=== PATIENT | female | born 1950 | race Caucasian/White ===

== ENCOUNTER 2019-06-22 07:23 | Emergency (ER) | payer OTHER ==
[2019-06-22] MEDS ORDERED: NA CHLORIDE 0.9% 1,000 ML ONE (08:07)
[2019-06-22 08:25] LABS: Protime INR 0.99
[2019-06-22 08:29] LABS: Absolute Lymphocytes (CBC) 1.9 K/uL (0.7-4.9); Basophils % 0.6 % (0-1.3); Hematocrit 44.6 % (36.0-45.0); RBC Red Blood Cell Count 5.09 M/uL (3.86-4.86)
[2019-06-22 08:39] LABS: ALT/SGPT 31 U/L (12-78); AST/SGOT 16 U/L (15-37); Albumin 3.5 g/dL (3.4-5.0); Alkaline Phosphatase 64 U/L (45-117); BUN Blood Urea Nitrogen 17 mg/dL (7-18); Bicarbonate 24 mmol/L (21-32); Bilirubin Direct 0.2 mg/dL (0-0.2); Bilirubin Total 0.5 mg/dL (0.2-1.0); Glucose Level 122 mg/dL (74-106); NT PRO-BNP 271 pg/mL (<125); Potassium 4.2 mmol/L (3.5-5.1); Protein, Total 6.4 g/dL (6.4-8.2); Sodium Level 139 mmol/L (136-145); Thyroid Stimulating Hormone 0.017 uIU/mL (0.360-3.740); Troponin (Emerg Dept Use Only) < 0.02 ng/mL (0.0-0.045)
--- NOTE | 2019-06-22 09:42 | RAD REPORT ---
[facility] 8[facility]24 am CLINICAL HISTORY: Chest pain COMPARISON: 2018 FINDINGS: Small, bilateral lung nodules. Please refer to the CT report on same date for recommendati on Heart is borderline enlarged.
--- NOTE | 2019-06-22 09:42 | RAD REPORT ---
EXAM DESCRIPTION: CT - Angio Aorta For Dissection - 06/22/2019 9:12 am CLINICAL HISTORY: . Chest and abdominal pain COMPARISON: None TECHNIQUE: Computed tomography angiography of the chest, abdomen pelvis were obtained. 100 cc Isovue 370 was administered intravenously. Coronal and sagittal reconstruction were performed. MIP 3D reconstruction was performed All CT scans are performed using dose optimization technique as appropriate and may include automated exposure control or mA/KV adjustment according to patient size. FINDINGS: An aortic dissection is not seen. An aortic aneurysm is not displayed. The celiac, SMA and ALICE are patent . A lung consolidation is not present. A pericardial effusion is not seen. A pleural effusion is not n oted. 9 x 5 millimeter lingular nodule image 25. 8 x 6 millimeter nodule left lower lobe image 30. Co uple of additional tiny lung nodules bilaterally. A hernia involves the lateral aspect of the left lo wer lobe. Mild fatty liver Small hiatal hernia. Cholelithiasis with borderline gallbladder distention Spleen, and pancreas unremarkable. A 4.2 centimeter fatty mass right adrenal gland probably a myeloli james Mild prominence of the left adrenal gland likely benign Parapelvic renal cysts. No evidence of diverticulitis. Hysterectomy. Multiple, bilateral axillary lymph nodes measuring up to 13 millimeters short axis. IMPRESSION: Negative for an aortic dissection. Mild bilateral axillary lymphadenopathy may be reactive in nature. Neoplasm such as lymphoma can also have this appearance. Multiple lung nodules. 4.2 centimeter fatty mass right adrenal gland probably a myelolipoma . It is recommended that the patient have a CT in 3 months to reassess the axillary lymphadenopathy, michael ng nodules and right adrenal mass Cholelithiasis with borderline gallbladder distention
[2019-06-22 09:45] LABS: Urine Blood NEGATIVE (NEG); Urine Glucose NEGATIVE (NEG); Urine Protein NEGATIVE (NEG); Urine Specific Gravity 1.025 (1.005-1.030); Urine pH 5.5 (5.0-7.0)
[2019-06-22] MEDS ORDERED: ASPIRIN 81 MG CHEWABLE TABLET ONE (10:24)
[2019-06-22] MEDS ORDERED: CEFTRIAXONE/SWI 1gm 1 GM/10 ML SYR ONE (10:25)
--- NOTE | 2019-06-22 11:38 | EDPHYS ---
Physician Documentation [facility] Name: Isaura Neumann Age: 69 yrs Sex: Female : 1950 Arrival Date: 06/22/2019 Time: 07:27 Bed 5 Private MD: KIRILL Physician Juan Francisco Cabrera HPI: 06/21 07:57 This 69 yrs old Female presents to ER via Ambulatory with complaints of katherine Dizziness, Back Pain, Side Pain. 07:57 The patient presents with dizziness, generalized weakness. Onset: The symptoms/episode katherine began/occurred this morning, today. Context: occurred at home. Modifying factors: The symptoms are alleviated by nothing, the symptoms are aggravated by nothing. Associated signs and symptoms: The patient has no apparent associated signs or symptoms. Associated signs and symptoms: The patient has no apparent associated signs or symptoms, Pertinent positives: palpitations. Severity of symptoms: At their worst the symptoms were mild. Patient's baseline: Neuro: alert and fully oriented. The patient has not experienced similar symptoms in the past. Historical: - Allergies: 07:39 PENICILLINS; iw 07:48 Tetanus Vaccines and Toxoid; tw2 07:48 Ibuprofen; tw2 - PMHx: 07:39 Asthma; Diabetes - NIDDM; Hypertension; iw - PSHx: 07:39 Hysterectomy; ; ROBERTO CARLOS shoulder surgery; Thyroidectomy; iw - Immunization history:: Adult Immunizations not up to date. - Social history:: Smoking status: Patient denies any tobacco usage or history of. - Family history:: not pertinent. ROS: 07:57 Constitutional: Negative for fever, chills, and weight loss, Eyes: Negative for injury, katherine pain, redness, and discharge, ENT: Negative for injury, pain, and discharge, Neck: Negative for injury, pain, and swelling, Cardiovascular: Negative for chest pain, palpitations, and edema, Respiratory: Negative for shortness of breath, cough, wheezing, and pleuritic chest pain, Abdomen/GI: Negative for abdominal pain, nausea, vomiting, diarrhea, and constipation, : Negative for injury, bleeding, discharge, and swelling, MS/Extremity: Negative for injury and deformity, Skin: Negative for injury, rash, and discoloration, Psych: Negative for depression, anxiety, suicide ideation, homicidal ideation, and hallucinations, Allergy/Immunology: Negative for hives, rash, and allergies, Endocrine: Negative for neck swelling, polydipsia, polyuria, polyphagia, and marked weight changes, Hematologic/Lymphatic: Negative for swollen nodes, abnormal bleeding, and unusual bruising. 07:57 Back: Positive for pain with movement, of the right scapular area, right subscapular area and right mid back. Exam: 07:57 Constitutional: This is a well developed, well nourished patient who is awake, alert, katherine and in no acute distress. Head/Face: Normocephalic, atraumatic. Eyes: Pupils equal round and reactive to light, extra-ocular motions intact. Lids and lashes normal. Conjunctiva and sclera are non-icteric and not injected. Cornea within normal limits. Periorbital areas with no swelling, redness, or edema. ENT: Nares patent. No nasal discharge, no septal abnormalities noted. Tympanic membranes are normal and external auditory canals are clear. Oropharynx with no redness, swelling, or masses, exudates, or evidence of obstruction, uvula midline. Mucous membranes moist. Neck: Trachea midline, no thyromegaly or masses palpated, and no cervical lymphadenopathy. Supple, full range of motion without nuchal rigidity, or vertebral point tenderness. No Meningismus. Chest/axilla: Normal chest wall appearance and motion. Nontender with no deformity. No lesions are appreciated. Cardiovascular: Regular rate and rhythm with a normal S1 and S2. No gallops, murmurs, or rubs. Normal PMI, no JVD. No pulse deficits. Respiratory: Lungs have equal breath sounds bilaterally, clear to auscultation and percussion. No rales, rhonchi or wheezes noted. No increased work of breathing, no retractions or nasal flaring. Abdomen/GI: Soft, non-tender, with normal bowel sounds. No distension or tympany. No guarding or rebound. No evidence of tenderness throughout. Back: No spinal tenderness. No costovertebral tenderness. Full range of motion. Skin: Warm, dry with normal turgor. Normal color with no rashes, no lesions, and no evidence of cellulitis. MS/ Extremity: Pulses equal, no cyanosis. Neurovascular intact. Full, normal range of motion. Neuro: Awake and alert, GCS 15, oriented to person, place, time, and situation. Cranial nerves II-XII grossly intact. Motor strength 5/5 in all extremities. Sensory grossly intact. Cerebellar exam normal. Normal gait. Psych: Awake, alert, with orientation to person, place and time. Behavior, mood, and affect are within normal limits. 07:57 Skin: no rash present. Vital Signs: 07:36 BP 144 / 66; Pulse 72; Resp 16; Temp 97.7; Pulse Ox 100% on R/A; Weight 88 kg; Height 5 iw ft. 4 in. (162.56 cm); Pain 9/10; 08:30 BP 138 / 63; Pulse 66; Resp 17; Pulse Ox 98% on R/A; tw2 09:37 BP 140 / 71; Pulse 76; Resp 19; Pulse Ox 100% on R/A; tw2 10:45 BP 125 / 86; Pulse 80; Resp 15; Pulse Ox 100% on R/A; tw2 11:25 BP 137 / 82; Pulse 89; Resp 17; Pulse Ox 99% on R/A; tw2 12:32 BP 135 / 88; Pulse 77; Resp 17; Pulse Ox 100% on R/A; tw2 07:36 Body Mass Index 33.30 (88.00 kg, 162.56 cm) iw MDM: 07:41 Patient medically screened. [facility] 07:59 Data reviewed: vital signs, nurses notes, lab test result(s), EKG, radiologic studies, [facility] scan, plain films. 03 07:56 Order name: Basic Metabolic Panel [facility] 06/21 07:56 Order name: CBC with Diff [facility] 06/21 07:56 Order name: LFT's [facility] 06/21 07:56 Order name: Magnesium [facility] 06/21 07:56 Order name: NT PRO-BNP [facility] 06/21 07:56 Order name: PT-INR [facility] 06/21 07:56 Order name: Troponin (emerg Dept Use Only) [facility] 06/21 07:56 Order name: TSH [facility] 06/21 07:57 Order name: Urine Culture [facility] 06/21 08:29 Order name: Protime (+INR); Complete Time: 09:57 EDMS 06/21 08:38 Order name: CBC with Automated Diff; Complete Time: 09:57 EDMS 06/21 08:40 Order name: Basic Metabolic Panel; Complete Time: 09:57 EDMS 06/21 08:40 Order name: Liver (Hepatic) Function; Complete Time: 09:57 EDMS 06/21 08:40 Order name: Troponin (Emerg Dept Use Only); Complete Time: 09:57 EDMS 06/21 07:56 Order name: XRAY Chest (1 view) [facility] 06/21 07:56 Order name: CT Aorta for Dissection [facility] 06/21 08:40 Order name: NT PRO-BNP; Complete Time: 09:57 EDMS 06/21 08:40 Order name: Magnesium; Complete Time: 09:57 EDMS 06/21 08:40 Order name: Thyroid Stimulating Hormone; Complete Time: 09:57 EDMS 06/21 08:44 Order name: Urine Dipstick--Ancillary (enter results) 06/21 09:46 Order name: Urine Dipstick-Ancillary; Complete Time: 09:57 EDMS 06/21 09:51 Order name: CT; Complete Time: 09:57 EDMS 06/21 09:51 Order name: RAD; Complete Time: 09:57 EDMS 06/21 09:59 Order name: Troponin (emerg Dept Use Only): 1130am [facility] 06/21 10:27 Order name: US Abdomen Limited [facility] 06/21 10:39 Order name: Troponin (Emerg Dept Use Only); Complete Time: 10:47 EDMS 06/21 11:31 Order name: Lipase [facility] 06/21 11:46 Order name: Lipase ED[facility] 06/21 11:49 Order name: US EDKY 06/21 07:56 Order name: EKG; Complete Time: 07:59 [facility] 06/21 07:56 Order name: Cardiac monitoring; Complete Time: 08:09 [facility] 06/21 07:56 Order name: EKG - Nurse/Tech; Complete Time: 08:09 [facility] 06/21 07:56 Order name: IV Saline Lock; Complete Time: 08:10 [facility] 06/21 07:56 Order name: Labs collected and sent; Complete Time: 08:10 [facility] 06/21 07:56 Order name: O2 Per Protocol; Complete Time: 08:10 [facility] 06/21 07:56 Order name: O2 Sat Monitoring; Complete Time: 08:10 [facility] 06/21 07:57 Order name: Urine Dipstick-Ancillary (obtain specimen); Complete Time: 08:30 [facility] Administered Medications: 08:34 Drug: NS 0.9% 1000 ml Route: IV; Rate: 1 bolus; Site: left antecubital; jl7 10:00 Follow up: Response: No adverse reaction; IV Status: Completed infusion; IV Intake: jl7 1000ml 10:25 Drug: Rocephin 1 grams Route: IV; Rate: per protocol; Site: left antecubital; jl7 10:28 Follow up: Response: No adverse reaction; IV Status: Completed infusion jl7 10:30 Drug: Aspirin 162 mg Route: PO; jl7 10:31 Follow up: Response: No adverse reaction jl7 11:50 Drug: levofloxacin 500 mg Volume: 100 ml; Route: IVPB; Infused Over: 60 mins; Site: tw2 left antecubital; 12:50 Follow up: Response: No adverse reaction; IV Status: Completed infusion tw2 12:05 Drug: Pepcid 20 mg Route: IVP; Site: left antecubital; tw2 12:31 Follow up: Response: No adverse reaction tw2 Disposition: 06/22/19 12:30 Discharged to Home. Impression: Urinary tract infection, site not specified, Type 2 diabetes mellitus, Dizziness and giddiness, Cholelithiasis. - Condition is Stable. - Discharge Instructions: Type 2 Diabetes Mellitus, Diagnosis, Adult, Dizziness, Urinary Tract Infection, Adult, Cholelithiasis, Cholelithiasis, Vnmr-[id number], Urinary Tract Infection, Adult, Onnp-rc-[id number], Type 2 Diabetes Mellitus, Diagnosis, Adult, Moer-ze-Nbol, Lymphadenopathy, Dizziness, Yfzi-cd-Gkvi. - Prescriptions for Cipro 250 mg Oral Tablet - take 1 tablet by ORAL route every 12 hours for 7 days; 14 tablet. Pepcid 20 mg Oral Tablet - take 1 tablet by ORAL route every 12 hours for 10 days; 20 tablet. Zofran 4 mg Oral Tablet - take 1 tablet by ORAL route every 12 hours As needed; 20 tablet. - Medication Reconciliation Form, Thank You Letter, Antibiotic Education, Prescription Opioid Use form. - Follow up: Private Physician; When: 2 - 3 days; Reason: Recheck today's complaints, Continuance of care, Re-evaluation by your physician. Follow up: Kamar Severino; When: 2 - 3 days; Reason: Recheck today's complaints, Re-evaluation by your physician. Follow up: Shabana Guallpa; When: 5 - 6 days; Reason: Recheck today's complaints, Continuance of care, Re-evaluation by your physician. Follow up: Dr. Saeid Geronimo; When: 2 - 3 days; Reason: Recheck today's complaints, Re-evaluation by your physician. - Problem is new. - Symptoms have improved. Signatures: Dispatcher [employer] EDJuan Francisco Campoverde MD MD cha Williams, Irene, RN RN iw Rebecca Bennett RN RN tw2 Aron Lua RN RN jl7 Corrections: (The following items were deleted from the chart) 12:23 11:37 Hospitalization Ordered by Daniel Zheng DO for Inpatient Admission. Preliminary [facility] diagnosis is Abdominal tenderness; Dizziness and giddiness; Type 2 diabetes mellitus; Cholelithiasis; Cholecystitis. Bed requested for Telemetry/MedSurg (Inpatient). Status is Inpatient Admission. Condition is Fair. Problem is new. Symptoms have improved. [facility] 13:02 12:30 06/22/2019 12:30 Discharged to Home. Impression: Urinary tract infection, site tw2 not specified; Type 2 diabetes mellitus; Dizziness and giddiness; Cholelithiasis. Condition is Stable. Discharge Instructions: Type 2 Diabetes Mellitus, Diagnosis, Adult, Dizziness, Urinary Tract Infection, Adult, Cholelithiasis, Cholelithiasis, Uumc-tj-Grnf, Urinary Tract Infection, Adult, Kbdy-ze-Yzgp, Type 2 Diabetes Mellitus, Diagnosis, Adult, Fdyd-br-Ekfn, Lymphadenopathy, Dizziness, Shsf-xz-Tljy. Prescriptions for Cipro 250 mg Oral Tablet - take 1 tablet by ORAL route every 12 hours; 14 tablet, Cipro 250 mg Oral Tablet - take 1 tablet by ORAL route every 12 hours for 7 days; 14 tablet, Pepcid 20 mg Oral Tablet - take 1 tablet by ORAL route every 12 hours for 10 days; 20 tablet, Zofran 4 mg Oral Tablet - take 1 tablet by ORAL route every 12 hours As needed; 20 tablet. and Forms are Medication Reconciliation Form, Thank You Letter, Antibiotic Education, Prescription Opioid Use. Follow up: Private Physician; When: 2 - 3 days; Reason: Recheck today's complaints, Continuance of care, Re-evaluation by your physician. Follow up: Kamar Severino; When: 2 - 3 days; Reason: Recheck today's complaints, Re-evaluation by your physician. Follow up: Shabana Guallpa; When: 5 - 6 days; Reason: Recheck today's complaints, Continuance of care, Re-evaluation by your physician. Follow up: Dr. Saeid Geronimo; When: 2 - 3 days; Reason: Recheck today's complaints, Re-evaluation by your physician. Problem is new. Symptoms have improved. katherine
--- NOTE | 2019-06-22 11:38 | ER ---
Nurse's Notes [facility] Name: Isaura Neumann Age: 69 yrs Sex: Female : 1950 Arrival Date: 06/22/2019 Time: 07:27 Bed 5 Private MD: Diagnosis: Urinary tract infection, site not specified;Type 2 diabetes mellitus;Dizziness and giddiness;Cholelithiasis Presentation: 06/21 07:36 Chief complaint: Patient states: right upper back pain since this morning , denies iw cough, denies injury, feels dizzy , feels similar to when she had pneumonia. Coronavirus screen: The patient has NOT traveled to a country currently being monitored by the [facility] within the last 14 days. Proceed with normal triage procedures. The patient has NOT had contact with any known and/or suspected case of coronavirus. Proceed with normal triage procedures. Ebola Screen: Patient negative for fever greater than or equal to 101.5 degrees Fahrenheit, and additional compatible Ebola Virus Disease symptoms Patient denies exposure to infectious person. Patient denies travel to an Ebola-affected area in the 21 days before illness onset. No symptoms or risks identified at this time. Initial Sepsis Screen: Does the patient meet any 2 criteria? No. Patient's initial sepsis screen is negative. Does the patient have a suspected source of infection? No. Patient's initial sepsis screen is negative. Risk Assessment: Do you want to hurt yourself or someone else? Patient reports no desire to harm self or others. 07:36 Method Of Arrival: Ambulatory iw 07:36 Acuity: CHIVO 3 iw 07:47 Onset of symptoms was June 22, 2019. tw2 Historical: - Allergies: 07:39 PENICILLINS; iw 07:48 Tetanus Vaccines and Toxoid; tw2 07:48 Ibuprofen; tw2 - PMHx: 07:39 Asthma; Diabetes - NIDDM; Hypertension; iw - PSHx: 07:39 Hysterectomy; ; ROBERTO CARLOS shoulder surgery; Thyroidectomy; iw - Immunization history:: Adult Immunizations not up to date. - Social history:: Smoking status: Patient denies any tobacco usage or history of. - Family history:: not pertinent. Screenin:45 Abuse screen: Denies threats or abuse. Nutritional screening: No deficits noted. tw2 Tuberculosis screening: No symptoms or risk factors identified. Fall Risk None identified. Assessment: 07:42 Reassessment: pt typing on cell phone upon entry into room and while assessment tw2 performed, NAD. General: Appears in no apparent distress. obese, well groomed, Behavior is calm, cooperative, appropriate for age. Pain: Complains of pain in back. Neuro: Level of Consciousness is awake, alert, obeys commands, Oriented to person, place, time, situation. Cardiovascular: Heart tones S1 S2 Capillary refill < 3 seconds Patient's skin is warm and dry. Respiratory: Airway is patent Respiratory effort is even, unlabored, Respiratory pattern is regular, symmetrical, Breath sounds are clear bilaterally. GI: No signs and/or symptoms were reported involving the gastrointestinal system. Abdomen is round non-distended, obese, Bowel sounds present X 4 quads. : No signs and/or symptoms were reported regarding the genitourinary system. EENT: No signs and/or symptoms were reported regarding the EENT system. Derm: No signs and/or symptoms reported regarding the dermatologic system. Musculoskeletal: Range of motion: intact in all extremities. 07:45 Reassessment: provider at bedside at this time. tw2 08:30 Reassessment: Patient appears in no apparent distress at this time. No changes from tw2 previously documented assessment. Patient and/or family updated on plan of care and expected duration. Pain level reassessed. Patient is alert, oriented x 3, equal unlabored respirations, skin warm/dry/pink. 08:45 Reassessment: pt requested to go to restroom at this time, pt unsteady on feet when tw2 standing, pt offered and assisted to w/c at this time, pt able to get into w/c safely, pt returned to bed safely at this time, nad. 08:59 Reassessment: pt c/o "not being able to do this test because i am claustrophobic", i tw2 called pts son at pts request confirmed allergies, talked with pt, "pt states ok i will do the test but dont leave me", donned CT radiology protective gown and held pts had during examination, pt then tolerated well, pt states "it was nerve wracking but i did it thanks to you", CT staff and nurse encouraged pt throughout px. 09:37 Reassessment: Patient appears in no apparent distress at this time. Patient and/or tw2 family updated on plan of care and expected duration. Pain level reassessed. Patient is alert, oriented x 3, equal unlabored respirations, skin warm/dry/pink. 10:46 Reassessment: Patient appears in no apparent distress at this time. No changes from tw2 previously documented assessment. Patient and/or family updated on plan of care and expected duration. Pain level reassessed. Patient is alert, oriented x 3, equal unlabored respirations, skin warm/dry/pink. 11:26 Reassessment: Patient appears in no apparent distress at this time. No changes from tw2 previously documented assessment. Patient and/or family updated on plan of care and expected duration. Pain level reassessed. Patient is alert, oriented x 3, equal unlabored respirations, skin warm/dry/pink. 12:46 Reassessment: Patient appears in no apparent distress at this time. No changes from tw2 previously documented assessment. Patient and/or family updated on plan of care and expected duration. Pain level reassessed. Patient is alert, oriented x 3, equal unlabored respirations, skin warm/dry/pink. Vital Signs: 07:36 BP 144 / 66; Pulse 72; Resp 16; Temp 97.7; Pulse Ox 100% on R/A; Weight 88 kg; Height 5 iw ft. 4 in. (162.56 cm); Pain 9/10; 08:30 BP 138 / 63; Pulse 66; Resp 17; Pulse Ox 98% on R/A; tw2 09:37 BP 140 / 71; Pulse 76; Resp 19; Pulse Ox 100% on R/A; tw2 10:45 BP 125 / 86; Pulse 80; Resp 15; Pulse Ox 100% on R/A; tw2 11:25 BP 137 / 82; Pulse 89; Resp 17; Pulse Ox 99% on R/A; tw2 12:32 BP 135 / 88; Pulse 77; Resp 17; Pulse Ox 100% on R/A; tw2 07:36 Body Mass Index 33.30 (88.00 kg, 162.56 cm) iw ED Course: 07:27 Patient arrived in ED. ag5 07:38 Triage completed. iw 07:39 Arm band placed on. iw 07:40 Bed in low position. Call light in reach. Side rails up X2. quality assurance monitor final on. Pulse tw2 ox on. NIBP on. 07:41 Juan Francisco Cabrera MD is Attending Physician. katherine 07:43 Rebecca Bennett, RN is Primary Nurse. tw2 08:09 Initial lab(s) drawn, by me, sent to lab. EKG done, by build technician. reviewed by Juan Francisco Cabrera MD. Inserted saline lock: 22 gauge in left antecubital area, using aseptic technique. Blood collected. 08:30 Urine collected: clean catch specimen, cloudy, morenita colored. jb1 08:40 EKG done, by build technician. reviewed by Juan Francisco Cabrera MD. at1 11:36 Daniel Zheng DO is Hospitalizing Provider. katherine 12:30 Kamar Severino MD is Referral Physician. katherine 12:30 Shabana Rome MD is Referral Physician. katherine 12:30 Saeid Geronimo MD is Referral Physician. katherine 12:30 No provider procedures requiring assistance completed. IV discontinued, intact, tw2 bleeding controlled, No redness/swelling at site. Pressure dressing applied. 12:32 Awaiting: completion of IV abx PRIOR to discharge. tw2 Administered Medications: 08:34 Drug: NS 0.9% 1000 ml Route: IV; Rate: 1 bolus; Site: left antecubital; jl7 10:00 Follow up: Response: No adverse reaction; IV Status: Completed infusion; IV Intake: jl7 1000ml 10:25 Drug: Rocephin 1 grams Route: IV; Rate: per protocol; Site: left antecubital; jl7 10:28 Follow up: Response: No adverse reaction; IV Status: Completed infusion jl7 10:30 Drug: Aspirin 162 mg Route: PO; jl7 10:31 Follow up: Response: No adverse reaction jl7 11:50 Drug: levofloxacin 500 mg Volume: 100 ml; Route: IVPB; Infused Over: 60 mins; Site: tw2 left antecubital; 12:50 Follow up: Response: No adverse reaction; IV Status: Completed infusion tw2 12:05 Drug: Pepcid 20 mg Route: IVP; Site: left antecubital; tw2 12:31 Follow up: Response: No adverse reaction tw2 Intake: 10:00 IV: 1000ml; Total: 1000ml. jl7 Outcome: 11:37 Decision to Hospitalize by Provider. katherine 12:30 Discharge ordered by . katherine 12:30 Discharged to home ambulatory, with family. tw2 12:30 Condition: stable 12:30 Discharge instructions given to patient, family, Instructed on discharge instructions, follow up and referral plans. medication usage, Demonstrated understanding of instructions, follow-up care, medications, Prescriptions given X 3. 13:02 Patient left the ED. tw2 Addendum: 06/27/2019 09:23 Addendum: Culture Results: Positive urine culture. No further action required. Bacteria d m5 sensitive to prescribed antibiotic. Signatures: Aashish Sanches jb1 Doreen Lind, RN RN dm5 Juan Francisco Cabrera MD MD cha Williams, Irene, RN RN iw Skye dEuardo, [employer] media EKG Tat1 Rebecca Bennett RN RN tw2 Aron Lua RN RN jl7 Karine Farmer ag5
[2019-06-22] MEDS ORDERED: Levofloxacin500mg IV 500 MG/100 ML BAG IV ONE (11:47)
--- NOTE | 2019-06-22 11:48 | RAD REPORT ---
EXAM DESCRIPTION: US - Abdomen Exam Limited - 06/22/2019 11:18 am CLINICAL HISTORY: ABD PAIN COMPARISON: No comparisons FINDINGS: The gallbladder demonstrates sludge and shadowing gallstones. No pericholecystic fluid or gallbladder wall thickening. The common bile duct is normal measuring 5 mm. The liver demonstrates no findings of intrahepatic biliary dilatation. IMPRESSION: Cholelithiasis and gallbladder sludge.
[2019-06-22] MEDS ORDERED: FAMOTIDINE 20 MG/2 ML VIAL IV ONE (12:06)
[2019-06-22 13:28] VITALS: TEMP 97.7
[2019-06-22 13:37] VITALS: BP 135/88; O2SAT 100
--- NOTE | 2019-06-22 13:44 | EKG ---
Test Date: 2019-06-22 Test Time: 08:07:11 Air Support Operations Operator: ALIZA MEASUREMENT RESULTS: Intervals: Rate: 67 SD: 142 QRSD: 84 QT: 418 QTc: 441 [place]: P: 33 SD: 142 QRS: 6 T: 37 INTERPRETIVE STATEMENTS: Normal sinus rhythm Normal ECG Compared to ECG 06/05/2017 08:16:28 Left ventricular hypertrophy no longer present T-wave abnormality no longer present Electronically Signed On 06-22-19 13:43:37 SYSTEMS SUPPORT OFFICER by Doron Vela
--- NOTE | 2019-06-22 15:21 | P.CNS ---
Date of Consult: 06/22/19 Reason for Consult: ER Evaluation Requesting Physician: Juan Francisco Cabrera Primary Care Provider: [facility] Chief Complaint: Right back pain History of Present Illness: 69-year-old female with history of COPD, diabetes, hypertension. Patient presented with right upper back pain. Was mainly near the right shoulder region. This started this a.m.. She denied any fever, chills, nausea , vomiting. She denied any abdominal pain. She did not report any dysuria. No recent travel wore sick contacts noted. Patient came to the ER thinking that she may have pneumonia. In the ER patient was evaluated. CBC, BMP unremarkable. Urinalysis unremarkable. Chest x-ray showed some lung nodules. A CT scan showed no evidence of pulmonary embolism. Bilateral axillary adenopathy noted. 4.2 cm right adrenal gland noted likely myelolipoma. Cholelithiasis without cholecystitis noted. Abdominal ultrasound also showed cholelithiasis without cholecystitis. I was called to evaluate patient for possible admission. Allergies Penicillins Allergy (Mild, Verified 07/06/12 05:25) Hives/Rash ibuprofen Allergy (Verified 07/07/12 09:14) Rash Tetanus Vaccines and Toxoid [Tetanus Vaccines & Toxoid] Adverse Reaction ( Verified 07/07/12 09:14) Shortness of breath Home medications list reviewed: Yes Home Medications: Albuterol Sulfate [Proair Hfa] 2 puff IH Q6HP PRN #1 hfa.aer.ad 07/07/12 Calcium Citrate 750 mg PO BID #0 tablet 07/07/12 Levothyroxine Sodium [Synthroid] 0.15 mg PO M,W,F #30 tablet 07/07/12 cloNIDine HCL [Catapres*] 0.2 mg PO BID #60 tab 07/07/12 methylPREDNISolone [Medrol*] 4 mg PO UD #1 tab 07/07/12 - Past Medical/Surgical History -: Hypothyroidism -: Hypertension -: Diabetes mellitus type 2 -: COPD -: Hysterectomy -: -: Bilateral shoulder surgery -: Thyroidectomy Psychosocial/ Personal History: Patient is - Family History Sister Medical History: Other (see notes) (Lymphoma) - Social History Smoking Status: Never smoker Alcohol use: No CD- Drugs: No Caffeine use: Yes Place of Residence: Home Review of Systems General: As per HPI Eyes: Unremarkable ENT: Unremarkable Respiratory: Unremarkable Cardiovascular: Unremarkable Gastrointestinal: Unremarkable Genitourinary: Unremarkable Musculoskeletal: Back Pain, As per HPI Integumentary: Unremarkable Neurological: Unremarkable Lymphatics: Unremarkable Physical Examination Temp Pulse Resp BP Pulse Ox 97.7 F 77 17 135/88 06/22/19 07:36 06/22/19 12:32 06/22/19 12:32 06/22/19 12:32 General: Alert, In no apparent distress, Oriented x3, Cooperative HEENT: Atraumatic, Normocephalic Neck: Supple Respiratory: Clear to auscultation bilaterally, Normal air movement Cardiovascular: Normal pulses, Regular rate/rhythm Gastrointestinal: Normal bowel sounds, Soft and benign, Non-distended, No tenderness, No masses, No rebound, No guarding Musculoskeletal: No erythema, No tenderness, No warmth Integumentary: No tenderness/swelling, No erythema, No warmth, No cyanosis Neurological: Normal speech, Normal strength at 5/5 x4 extr, Normal tone, Normal affect Laboratory Data (last 24 hrs) 06/22/19 10:15: Lipase 86 06/22/19 08:05: PT 11.7, INR 0.99 06/22/19 08:05: WBC 10.5, Hgb 14.9, Hct 44.6, Plt Count 310 06/22/19 08:05: Sodium 139, Potassium 4.2, BUN 17, Creatinine 0.62, Glucose 122 H, Magnesium 2.0, Total Bilirubin 0.5, AST 16, ALT 31, Alkaline Phosphatase 64 Conclusions/Impression: Impression: Back pain likely osteoarthritis Cholelithiasis without cholecystitis Bilateral axillary adenopathy likely reactive Hypertension Diabetes mellitus type 2 Surgical hypothyroidism Plan: Patient was evaluated. Case discussed with surgery. No surgical intervention required at this time. No need for admission at this time. Patient has cholelithiasis without cholecystitis. Patient can follow up with surgery to further address. Education on cholelithiasis will be provided. Concerning the axillary adenopathy, will recommend that she follow up with her PCP. Recommend repeat CT scan likely in 1 month. Due to family history of lymphoma patient may require further evaluation. If lymph nodes in large recommend follow up with surgery for biopsy. Patient will continue with her current medications for hypertension, diabetes, and hypothyroidism. Recommend follow up with her PCP in 1 week to follow up ER visit. Case discussed with ER physician. ER physician will discharge from home. Please note patient was evaluated by surgery in the emergency room. Surgery agreed with no indication for admission. Time Spent Managing Pts care (In Minutes): 55
--- NOTE | 2019-06-22 16:20 | CON ---
Date of Consultation: 06/22/2019 Reason For Consultation: Right back pain. History Of Present Illness: Patient is a 69-year-old female who comes in with a 2-day history of rig ht-sided lower back pain. No nausea, no vomiting. No bloating, no belching, no heartburn. Not asso ciated with diet. No diarrhea, no constipation. No blood in her stool. No dysuria or hematuria. N o sore throat, runny nose, cough, headaches, or dizziness. No chest pain. Other than the right lowe r back pain, she states that she has had pneumonia 3 times in last 10 years and this is how those sym ptoms started and that is why she was concerned and came to the emergency room. No fever or chills. Review of Systems: Otherwise unremarkable. Past Medical History: Significant for COPD, asthma, diabetes type 2, hypertension. Past Surgical History: Hysterectomy, , shoulder surgery, thyroidectomy. Allergies: INCLUDE PENICILLIN. Social History: The patient does not smoke or drink. Family History: Noncontributory. Physical Examination: Vital Signs: Currently are stable and she is afebrile. General: She is awake, alert, and oriented x3. Head and Neck: No evidence of icterus. Cranial nerves 2 through 12 are grossly within normal limits . No neck masses. No JVD. Throat clear. Neck supple. Chest: Clear. Heart: S1 and S2. Abdomen: Soft, nondistended, nontender. Positive bowel sounds. Extremities: Neurovascularly intact. Neurologic: Nonfocal. Back: She has tender knot in the upper back but in the lower back, it is small near the costovertebr al angle. Diagnostic Data: White count is 10.5. There is a slight left shift 74.6, INR is 1.99. Chemistry re viewed, essentially unremarkable. Her TSH is low at 0.017. UA shows nitrite positive, esterase trac e. CT of the abdomen and chest for dissection revealed cholelithiasis with slight distention of the gall bladder. No evidence of dissection and enlarged lymph nodes up to 13 mm in the axilla. Ultrasound s hows cholelithiasis and gallbladder sludge but no evidence of any fluid or gallbladder wall thickenin g. Assessment: Cholelithiasis, asymptomatic; right back pain, likely due to early urinary tract infecti on possibly or musculoskeletal pain. Recommendations: No need for any acute surgical intervention. The lymph nodes can be monitored by [facility] and should she have biliary colic, she can follow up with me as an outpatient and I w ill discuss with Dr. Zheng regarding the UTI possibility and perhaps discharging her on oral antibio tics. /MODL Voice ID: [id number] Report ID: [id number]
== END 2019-06-22 13:02 | disposition home or self-care (01) ==
LOC: ER 07:23
DX: N39.0 Urinary tract infection, site not specified (principal); K80.20 Calculus of gallbladder without cholecystitis without obstruction; E11.8 Type 2 diabetes mellitus with unspecified complications; I10 Essential (primary) hypertension; Z88.0 Allergy status to penicillin; Z88.6 Allergy status to analgesic agent; Z88.7 Allergy status to serum and vaccine
CPT/HCPCS: 96365; 96361; 93005; 87088; 85025; 87086; 80048; 36415; 83735; 85610; 80076; 84443; 87077; 87186; 81003; 84484 ×2; 83690; 83880; 71275; 74175; 71045; 76705; 96375; 99285; Q9967; J0696; J7030

== ENCOUNTER 2019-08-10 03:40 | Emergency (ER) | payer OTHER ==
--- NOTE | 2019-08-10 04:17 | ER ---
Nurse's Notes [facility] Name: Isaura Neumann Age: 69 yrs Sex: Female : 1950 Arrival Date: 08/10/2019 Time: 03:43 Bed 6 Private MD: Diagnosis: Presentation: 08/09 03:55 Chief complaint: Patient states: I have high blood pressure around 153/70 mmHg when I rr5 checked it at home. denies nausea, vomiting, headache, or discomfort. 03:55 Coronavirus screen: Proceed with normal triage. Ebola Screen: Patient negative for rr5 fever greater than or equal to 101.5 degrees Fahrenheit, and additional compatible Ebola Virus Disease symptoms Patient denies exposure to infectious person. Patient denies travel to an Ebola-affected area in the 21 days before illness onset. Initial Sepsis Screen: Does the patient meet any 2 criteria? No. Patient's initial sepsis screen is negative. Does the patient have a suspected source of infection? No. Patient's initial sepsis screen is negative. Risk Assessment: Do you want to hurt yourself or someone else? Patient reports no desire to harm self or others. Onset of symptoms was August 10, 2019. 03:55 Method Of Arrival: Ambulatory rr5 03:55 Acuity: HCIVO 4 rr5 Historical: - Allergies: 04:03 Ibuprofen; rr5 04:03 PENICILLINS; rr5 04:03 Tetanus Vaccines and Toxoid; rr5 - Home Meds: 04:03 Ondansetron Oral [Active]; levothyroxine oral [Active]; Metformin Oral [Active]; rr5 Metoprolol Tartrate Oral [Active]; Naproxen Oral [Active]; - PMHx: 04:03 Asthma; Diabetes - NIDDM; Hypertension; Hypothyroidism; rr5 - PSHx: 04:03 Hysterectomy; shoulder surgery; rr5 - Immunization history:: Adult Immunizations up to date. - Social history:: Smoking status: unknown Patient/guardian denies using alcohol, street drugs. Screenin:00 Abuse screen: Denies threats or abuse. Denies injuries from another. Nutritional rr5 screening: No deficits noted. Tuberculosis screening: No symptoms or risk factors identified. Fall Risk None identified. Total Whitfield Fall Scale indicates No Risk (0-24 pts). Assessment: 04:05 General: Appears in no apparent distress. comfortable, Behavior is calm, cooperative, rr5 appropriate for age. Pain: Denies pain. Neuro: Level of Consciousness is awake, alert, obeys commands, Oriented to person, place, time, situation, Denies headache. Cardiovascular: Reports high blood pressure Capillary refill < 3 seconds Patient's skin is warm and dry. Respiratory: Airway is patent Respiratory effort is even, unlabored, Respiratory pattern is regular, symmetrical. GI: No signs and/or symptoms were reported involving the gastrointestinal system. Patient currently denies nausea, vomiting. : No signs and/or symptoms were reported regarding the genitourinary system. EENT: No signs and/or symptoms were reported regarding the EENT system. Derm: No signs and/or symptoms reported regarding the dermatologic system. Musculoskeletal: Circulation, motion, and sensation intact. Capillary refill < 3 seconds. 04:10 Reassessment: Patient appears in no apparent distress at this time. Patient is alert, rr5 oriented x 3, equal unlabored respirations, skin warm/dry/pink. patient does not want to be seen by the doctor, refused to stay in the hospital. she verbalized I feel really fine I don't feel any discomfort. I don't know may be my machine is too old, I need to get a new one.. I want to go home now. CN informed. Vital Signs: 03:55 BP 142 / 85; Pulse 78; Resp 16; Temp 97.5; Pulse Ox 99% ; Weight 74.84 kg; Height 5 ft. rr5 4 in. (162.56 cm); Pain 0/10; 03:55 Body Mass Index 28.32 (74.84 kg, 162.56 cm) rr5 ED Course: 03:43 Patient arrived in ED. ds1 03:48 Griffin Ross, RN is Primary Nurse. rr5 04:01 Triage completed. rr5 04:04 Arm band placed on right wrist. rr5 04:04 Patient has correct armband on for positive identification. Placed in gown. Bed in low rr5 position. Call light in reach. Pulse ox on. NIBP on. 04:05 No provider procedures requiring assistance completed. rr5 04:14 Patient did not have IV access during this emergency room visit. rr5 Administered Medications: No medications were administered Outcome: 04:10 Eloped from patient exam room, before seeing physician rr5 04:10 Condition: stable 04:10 Discharge instructions given to patient, Instructed on to come back in ED anytime if the symptoms getting worst Demonstrated understanding of instructions. 04:17 Patient left the ED. rr5 Signatures: Rosette Michel Raymond, RN RN rr5
[2019-08-10 04:23] VITALS: BP 142/85; TEMP 97.5; O2SAT 99
== END 2019-08-10 04:17 | disposition left against medical advice (07) ==
LOC: ER 03:40
DX: Z53.21 Procedure and treatment not carried out due to patient leaving prior to being seen by health care provider (principal)
CPT/HCPCS: 99283